=== PATIENT | female | born 1970 | race Caucasian/White ===

== ENCOUNTER 2023-09-17 10:41 | Emergency (ER) | payer MEDICAID ==
[~2023-09-17] VITALS: Ht 167.6 cm; Wt 61.0 kg
[2023-09-17 10:46] VITALS: TEMP 97.9
[2023-09-17 11:45] VITALS: BP 113/68; PULSE 65; RESP 18
== END 2023-09-17 12:33 | disposition home or self-care (01) ==
LOC: EMS 10:42
DX: R59.1 Generalized enlarged lymph nodes (principal); Z98.890 Other specified postprocedural states
CPT/HCPCS: 99281; Z7502

== ENCOUNTER 2025-05-06 16:32 | Emergency (ER) | payer MEDICAID ==
[~2025-05-06] VITALS: Ht 160 cm; Wt 61.4 kg
[2025-05-06 16:48] VITALS: BP 119/72; PULSE 76; RESP 16; TEMP 97.9; O2SAT 100
[2025-05-06] MEDS ORDERED: ROSU20TA98 PO (16:48)
[2025-05-06] MEDS ORDERED: IBUP-1554 PO (17:36)
[2025-05-06] MEDS ORDERED: ACET-66 PO (17:36)
[2025-05-06] MEDS: IBUPROFEN 600 MG TABLET PO ONE (17:39)
== END 2025-05-06 17:43 | disposition home or self-care (01) ==
LOC: EMS 16:32
DX: S93.401A Sprain of unspecified ligament of right ankle, initial encounter (principal); E78.00 Pure hypercholesterolemia, unspecified; Z85.3 Personal history of malignant neoplasm of breast; Z98.890 Other specified postprocedural states; Z79.899 Other long term (current) drug therapy; X58.XXXA Exposure to other specified factors, initial encounter; Y93.01 Activity, walking, marching and hiking; Y92.89 Other specified places as the place of occurrence of the external cause; Y99.8 Other external cause status
CPT/HCPCS: 99283